=== PATIENT | male | born 1955 | race Caucasian/White ===

== ENCOUNTER 2018-01-07 21:30 | Emergency (ER) | payer OTHER ==
[2018-01-07 21:37] VITALS: RESP 20; TEMP 97.5
[2018-01-07] MEDS ORDERED: APAP/OXYCODONE 325/5 TAB PO ONE (21:40)
[2018-01-07] MEDS ORDERED: KETOROLAC TROMETHAMINE 30 MG/ML SOL IM ONE (21:40)
[2018-01-07] MEDS ORDERED: APAP/OXYCODONE 325/5 TAB ONE (21:42)
[2018-01-07] MEDS ORDERED: KETOROLAC TROMETHAMINE 30 MG/ML SOL ONE (21:42)
[2018-01-07 22:42] VITALS: BP 136/100; PULSE 71; O2SAT 99
== END 2018-01-07 22:28 | disposition home or self-care (01) | DRG 935 ==
LOC: ED 21:30
DX: T23.001A Burn of unspecified degree of right hand, unspecified site, initial encounter (principal); T22.00XA Burn of unspecified degree of shoulder and upper limb, except wrist and hand, unspecified site, initial encounter; T20.00XA Burn of unspecified degree of head, face, and neck, unspecified site, initial encounter
CPT/HCPCS: 96372; 99282; J1885; A9270-GY